=== PATIENT | female | born 1960 | race Asian ===

== ENCOUNTER 2018-01-22 13:19 | Outpatient (CLI) | payer OTHER ==
--- NOTE | 2018-01-22 16:23 | MMO ---
BILATERAL DIGITAL SCREENING MAMMOGRAMS: Date: 01/22/18 HISTORY: 57-year-old female presents for digital screening mammogram. COMPARISON: 12/18/16, 09/04/15, 06/08/14, 11/05/12, and 08/29/08. FINDINGS: This patient's mammogram was interpreted with the assistance of computer-aided detection. The breasts are heterogeneously dense, which can obscure small masses. There is an occasional typically benign calcification. Stable parenchymal density asymmetry in the in ner aspect of the left breast. No direct or indirect evidence of malignancy. IMPRESSION: BIRADS 2: Benign Finding(s) Continue routine screening. POS: ROD
== END 2018-01-22 13:20 | disposition home or self-care (01) ==
LOC: SCSMAMMO 13:19
PROVIDERS: ATTEND Family Medicine
DX: Z12.31 Encounter for screening mammogram for malignant neoplasm of breast (principal)
CPT/HCPCS: 77067